=== PATIENT | male | born 1965 | race Caucasian/White ===

== ENCOUNTER 2022-02-11 20:17 | Inpatient (IN) | payer MEDICAID ==
[~2022-02-11] VITALS: Ht 180.3 cm; Wt 97.5 kg
--- NOTE | 2022-02-11 20:35 | NUR ---
BIBSELF C.O SYNCOPE LASTED 1 MIN @7PM. LKWT 12 NOON. C/P RADIATING TO LEFT SIDE. (SOB). PLACED COMFORTABLY IN BED. VITALS CHECKED. PATIENT IS AAOX4. PT HAS WEAKNESS ON LEFT SIDE OF BODY.
--- NOTE | 2022-02-11 20:41 | NUR ---
TELEMED REQUEST SENT
--- NOTE | 2022-02-11 20:43 | NUR ---
ESTELA TO CT
[2022-02-11] MEDS ORDERED: IOHEXOL-350 100 ML VIAL IV ONE (20:48)
[2022-02-11] MEDS ORDERED: IV NS 0.9% 250 ML IV ONE (20:48)
--- NOTE | 2022-02-11 20:59 | NUR ---
EMT AT BEDSIDE FOR EKG
[2022-02-11 21:01] LABS: BASOPHILS % (AUTO) 0.6 % (0.0-2.0); EOSINOPHILS % (AUTO) 1.2 % (0.0-6.0); HEMATOCRIT 40 % (39-51); HEMOGLOBIN 13.3 g/dL (13.5-17.5); LYMPHOCYTES # (AUTO) 1.9 K/uL (0.8-4.8); LYMPHOCYTES % (AUTO) 34.1 % (20.0-44.0); MEAN CORPUSCULAR HGB CONC 33 g/dl (31.0-36.0); MEAN CORPUSCULAR VOLUME 83 fL (80-96); MONOCYTES # (AUTO) 0.6 K/uL (0.1-1.30); NEUTROPHILS % (AUTO) 54.1 % (43.0-81.0); PLATELET COUNT (AUTO) 281 K/uL (150-450); RED BLOOD CELL COUNT(AUTO) 4.85 MIL/uL (4.5-6.0); WHITE BLOOD COUNT (AUTO) 5.6 K/uL (4.3-11.0)
[2022-02-11 21:13] LABS: ALANINE AMINOTRANSFERASE 17 U/L (12-78); ALBUMIN 3.6 g/dL (3.4-5.0); ALKALINE PHOSPHATASE 90 U/L (46-116); ASPARTATE AMINOTRANSFERASE 16 U/L (15-37); BILIRUBIN,DIRECT 0.1 mg/dL (0.0-0.2); BILIRUBIN,TOTAL 0.2 mg/dL (0.2-1.0); CALCIUM, SERUM 8.9 mg/dL (8.5-10.1); CARBON DIOXIDE 30 mmol/L (21-32); CHLORIDE 104 mmol/L (98-107); CREATININE 0.9 mg/dL (0.6-1.3); GLUCOSE 94 mg/dL (74-106); POTASSIUM 4.3 mmol/L (3.5-5.1); SODIUM SERUM 139 mmol/L (136-145); TOTAL PROTEIN, SERUM 8.1 g/dL (6.4-8.2); UREA NITROGEN, BLOOD 13 mg/dL (7-18)
--- NOTE | 2022-02-11 21:25 | NUR ---
TELENEURO DONE WITH DR PRAVEEN HOUSTON.
--- NOTE | 2022-02-11 21:25 | NUR ---
SEEN BY HI MITTAL AT BEDSIDE.
[2022-02-11] MEDS ORDERED: hydrALAZINE HCL IV 20 MG VIAL IV PRN (22:00)
[2022-02-11] MEDS: BLOOD SUGAR DIAGNOSTIC 1 EACH STRIP IN SCH (22:00)
--- NOTE | 2022-02-11 22:03 | NUR ---
MRSA SWAB COLLECTED AND SENT TO LAB. PATIENT'S BELONGINGS LIST DONE.
--- NOTE | 2022-02-11 22:08 | NUR ---
Courtney huber in [facility] - 02/11/22 at 2211 by IMELDA CALLED ACCEPTING RN WILL CALL ME BACK
[2022-02-11] MEDS ORDERED: ACETAMINOPHEN ES 500 MG TABLET PO PRN (22:30)
--- NOTE | 2022-02-11 23:25 | NUR ---
REPORT GIVEN TO GEORGE PEREZ
--- NOTE | 2022-02-11 23:45 | NUR ---
TRANSFER PATIENT TO ROOM
[2022-02-12] MEDS: SIMVASTATIN 20 MG TABLET PO SCH ×2 (00:08→21:27)
--- NOTE | 2022-02-12 00:57 | NUR ---
MS/TELE/RN AT 2466, RECEIVED PATIENT FROM [facility] VIA [facility]. PATIENT WAS AWAKE, ALERT, ORIENTED, VERY UPSET, NO SIGNS OF DISTRESS NOTED. ON ASSESSMENT, PATIENT REFUSED NIHSS ASSESSMENT, PATIENT STATED, " THERE IS NOTHING WRONG WITH ME EXCEPT MY LEFT LEG IS A LITTLE WEAK". PATIENT ALSO REFUSED SKIN ASSESSMENT. PATIENT ALSO REFUSED TO SIGN BELONGINGS FORM PER REHAN TERRY. DISCUSSED WITH PATIENT PLAN OF CARE, VERBALISED UNDERSTANDING. TAUGHT PATIENT ABOUT USE OF CALL LIGHT AND ENCOURAGED PATIENT TO CALL FOR ANY ASSISTANCE. WILL MONITOR PATIENT.
[2022-02-12] MEDS: BLOOD SUGAR DIAGNOSTIC 1 EACH STRIP IN SCH ×8 (06:00→21:27)
--- NOTE | 2022-02-12 06:12 | NUR ---
MS/TELE/RN PATIENT IS STILL SLEEPING, EASILY AROUSABLE, NO SIGNS OF DISTRESS NOTED, CALL LIGHT IN REACH. MRI QUESTIONNAIRE NOT DONE PATIENT IS SLEEPING. WILL ENDORSE TO NEXT RN. ALL NEEDS ATTENDED AT THIS TIME, WILL CONTINUE TO MONITOR.
--- NOTE | 2022-02-12 06:12 | NUR ---
MS/TELE/RN ACCU CHECK AT 0600 NOT DONE PATIENT IS NOT NPO.
[2022-02-12 06:32] LABS: BASOPHILS % (AUTO) 0.7 % (0.0-2.0); EOSINOPHILS % (AUTO) 2.1 % (0.0-6.0); HEMATOCRIT 38 % (39-51); HEMOGLOBIN 12.6 g/dL (13.5-17.5); LYMPHOCYTES # (AUTO) 1.7 K/uL (0.8-4.8); MEAN CORPUSCULAR HGB CONC 33 g/dl (31.0-36.0); MEAN CORPUSCULAR VOLUME 82 fL (80-96); MONOCYTES # (AUTO) 0.5 K/uL (0.1-1.30); MONOCYTES % (AUTO) 11.4 % (2.0-12.0); NEUTROPHILS # (AUTO) 2.1 K/uL (1.8-8.9); NEUTROPHILS % (AUTO) 47.8 % (43.0-81.0); PLATELET COUNT (AUTO) 262 K/uL (150-450); RED BLOOD CELL COUNT(AUTO) 4.69 MIL/uL (4.5-6.0); WHITE BLOOD COUNT (AUTO) 4.4 K/uL (4.3-11.0)
[2022-02-12] MEDS ORDERED: CARV6.252 PO (07:18)
[2022-02-12] MEDS ORDERED: AMLO-213 PO (07:18)
[2022-02-12] MEDS ORDERED: ENOX100D5 SQ (07:18)
[2022-02-12] MEDS ORDERED: LOSA100T31 PO (07:18)
[2022-02-12] MEDS ORDERED: PANTOPRAZOLE 40 MG TABLET.DR PO SCH (07:30)
--- NOTE | 2022-02-12 07:41 | NUR ---
RN OPENING NOTE- PATIENT IS AWAKE IN BED, AOX4 INTERACTIVE, A BIT OPPOSITIONAL, STATES FLOOR IS "LOUD AT NIGHT" NO SIGNS OF DISTRESS NOTED, CALL LIGHT IN REACH. ALL NEEDS ATTENDED AT THIS TIME, WILL CONTINUE TO MONITOR/ ASSIST
[2022-02-12 07:47] LABS: CALCIUM, SERUM 8.5 mg/dL (8.5-10.1); CREATININE 0.8 mg/dL (0.6-1.3); POTASSIUM 3.9 mmol/L (3.5-5.1)
[2022-02-12] MEDS: CARVEDILOL 6.25 MG TABLET PO SCH ×2 (08:46→16:46)
[2022-02-12] MEDS: ENOXAPARIN SODIUM 100 MG/ML DISP.SYRIN SQ SCH ×2 (08:46→21:00)
[2022-02-12] MEDS ORDERED: LOSARTAN POTASSIUM 50 MG TABLET PO SCH (09:00)
[2022-02-12] MEDS ORDERED: AMLODIPINE BESYLATE 10 MG TABLET PO SCH (09:00)
[2022-02-12] MEDS ORDERED: ENOXAPARIN SODIUM 100 MG/ML DISP.SYRIN SQ SCH (09:00)
--- NOTE | 2022-02-12 11:14 | NUR ---
SS received consult for stroke. Pt. is aggressive and refusing to speak. SW unable to interview pt.
--- NOTE | 2022-02-12 12:00 | NUR ---
RN NOTE- ASKED PT ABOUT PAST MEDICAL HX . NOT FORTHCOMING. IRRITABLE. WANTS TO SLEEP. SNACK GIVEN.
--- NOTE | 2022-02-12 13:45 | NUR ---
RN NOTE- PT OPPOSITIONAL TO SOME CARE. REFUSES THINGS. IRRITABLE. MONITOR / ASSIST
--- NOTE | 2022-02-12 16:47 | NUR ---
RN NOTE- USED [employer] TO PERFORM MRI. PT REFUSING VS AND ACCUCHECK/ HTN RX
--- NOTE | 2022-02-12 18:18 | NUR ---
RN NOTE- MRI STAFF TO UNIT TO TAKE PT FOR MRI
--- NOTE | 2022-02-12 19:18 | NUR ---
RN CLOSING NOTE- PT BACK FROM MRI, CALM INTERACTIVE, NEEDS ATTENDED. SIDE RAILS UP, BED LOCKED, VS STABLE. MONITOR / ASSIST
[2022-02-12 20:45] VITALS: BP 131/75
--- NOTE | 2022-02-12 22:07 | NUR ---
MS/TELE/RN AT 1999, PATIENT WAS IN ROOM, IN BE, AWAKE, ALERT, AND ORIENTED, NO C/O PAIN, NO SIGNS OF DISTRESS NOTED. REFUSED THE LOVENOX AT 2100, OFFERED THE BEDTIME MEDICATIONS, BUT ALSO REFUSED, PATIENT ALSO REFUSED THE ACCU CHECK.
[2022-02-13] MEDS: BLOOD SUGAR DIAGNOSTIC 1 EACH STRIP IN SCH ×3 (06:00→06:56)
--- NOTE | 2022-02-13 06:23 | NUR ---
MS/TELE/RN PATIENT IS AWAKE AT THIS TIME, NO C/O PAIN, NO DISTRESS NOTED, REFUSED ACCU CHECK STATING " I AM NOT DIABETIC, STOP CHECKING MY BLOOD SUGAR". ALL NEEDS ATTENDED AT THIS TIME, WILL CONTINUE TO MONITOR.
--- NOTE | 2022-02-13 07:30 | NUR ---
on rounds in am find pt.with flat affect,unfriendly.refusing vital signs.
--- NOTE | 2022-02-13 07:40 | NUR ---
REFUSED AM VITAL SIGNS.
--- NOTE | 2022-02-13 08:21 | NUR ---
dr. dalal in to see pt.
--- NOTE | 2022-02-13 08:40 | NUR ---
pt. getting dressed,states heel coverer told him he could go home.rn advised pt. medical dr. needs to see him first and dc him.pt. refusing.states he is leaving anything. Addendum: 02/13/22 at 1014 by KENJI CHRISTINE RN anyway.not anything.
--- NOTE | 2022-02-13 09:50 | NUR ---
DID NOT WAIT FOR DC PAPERS.
--- NOTE | 2022-02-13 09:55 | NUR ---
rn removing tele,2 hep locks,bandages to sites.refusing to sign ama papers.signed paper with kiln charger,additionally pt. refused to sign belonging sheet.walked down to lobby for dc by himself.
[2022-02-15 21:06] LABS: *CARD ANTI-CARDIOLIPIN AB IgG <9 GPL U/mL (0-14); *CARD ANTI-CARDIOLIPIN AB IgM <9 MPL U/mL (0-12)
[2022-02-16 21:06] LABS: *ANTITHROMBIN III AG 111 % (72-124); *DILUTE PROTHROMBIN TIME (dPT) 34.3 sec (0.0-47.6); *THROMBIN TIME 17.7 sec (0.0-23.0); *dPT CONFIRM RATIO 0.95 Ratio (0.00-1.34); *dRVVT 31.3 sec (0.0-47.0); FACTOR VIII ACTIVITY 146 % (56-140)
== END 2022-02-13 08:50 | disposition left against medical advice (07) | DRG 47 ==
LOC: ER 20:20 → TELE 23:16 → MED 02-13 08:43
PROVIDERS: ADMIT Nurse Practitioner Acute Care; ATTEND Nurse Practitioner Acute Care
DX: G45.9 Transient cerebral ischemic attack, unspecified (principal); I10 Essential (primary) hypertension; I48.91 Unspecified atrial fibrillation; Z86.711 Personal history of pulmonary embolism; Z86.718 Personal history of other venous thrombosis and embolism; I25.10 Atherosclerotic heart disease of native coronary artery without angina pectoris; J45.909 Unspecified asthma, uncomplicated; Z85.038 Personal history of other malignant neoplasm of large intestine; R00.0 Tachycardia, unspecified; Z68.30 Body mass index [BMI] 30.0-30.9, adult; Z20.822 Contact with and (suspected) exposure to COVID-19; I45.6 Pre-excitation syndrome; R29.701 NIHSS score 1; E66.9 Obesity, unspecified
CPT/HCPCS: 36415; 70450-TC; 70496-TC; 70498-TC; 70551-TC; 71045-TC; 80048-TC; 80061-TC; 80076-TC; 82962-TC; 84443-TC; 84484-TC; 85025-TC; 85240; 85300; 85301; 85303; 85385-TC; 85613; 85652-TC; 85670; 85705; 85730-TC; 85732; 86147; 87081-TC; 97116-TC; 97530-TC; 97535-TC; A6403; C9803; G0378; J1650; J7050; Q9967

== ENCOUNTER 2022-03-06 05:53 | Emergency (ER) | payer MEDICAID ==
[~2022-03-06] VITALS: Ht 180.3 cm; Wt 93.9 kg
[~2022-03-06 05:53] MED LIST: AMLO-213 PO; CARV6.252 PO; ENOX100D5 SQ; LOSA100T31 PO
--- NOTE | 2022-03-06 06:45 | NUR ---
PATIENT REFUSED BLOOD WORK AND IV INSERTION. MADE AWARE.
--- NOTE | 2022-03-06 07:15 | NUR ---
MD MCKINNEY ESTABLISHED IJ 20G.
--- NOTE | 2022-03-06 07:16 | NUR ---
BLOOD COLLECTED AND SENT TO LAB
[2022-03-06 07:22] LABS: BASOPHILS % (AUTO) 0.6 % (0.0-2.0); EOSINOPHILS % (AUTO) 1.6 % (0.0-6.0); HEMATOCRIT 36 % (39-51); HEMOGLOBIN 11.7 g/dL (13.5-17.5); LYMPHOCYTES % (AUTO) 26.7 % (20.0-44.0); MEAN CORPUSCULAR HGB CONC 33 g/dl (31.0-36.0); MEAN CORPUSCULAR VOLUME 83 fL (80-96); MONOCYTES # (AUTO) 0.9 K/uL (0.1-1.30); MONOCYTES % (AUTO) 11.5 % (2.0-12.0); NEUTROPHILS # (AUTO) 4.5 K/uL (1.8-8.9); NEUTROPHILS % (AUTO) 59.6 % (43.0-81.0); PLATELET COUNT (AUTO) 285 K/uL (150-450); RED BLOOD CELL COUNT(AUTO) 4.33 MIL/uL (4.5-6.0); WHITE BLOOD COUNT (AUTO) 7.5 K/uL (4.3-11.0)
[2022-03-06 07:45] LABS: CALCIUM, SERUM 8.4 mg/dL (8.5-10.1); CARBON DIOXIDE 27 mmol/L (21-32); CHLORIDE 103 mmol/L (98-107); CREATININE 0.7 mg/dL (0.6-1.3); GLUCOSE 95 mg/dL (74-106); POTASSIUM 3.7 mmol/L (3.5-5.1); SODIUM SERUM 137 mmol/L (136-145); UREA NITROGEN, BLOOD 15 mg/dL (7-18)
[2022-03-06] MEDS ORDERED: IOHEXOL-350 100 ML VIAL IV ONE (08:06)
[2022-03-06] MEDS ORDERED: IV NS 0.9% 250 ML IV ONE (08:06)
--- NOTE | 2022-03-06 08:16 | NUR ---
TAKEN TO CT VIA [facility]
[2022-03-06 09:08] VITALS: BP 144/88
--- NOTE | 2022-03-06 09:08 | NUR ---
Patient discharged to home in stable condition. Written and verbal after care instructions given. Patient verbalizes understanding of instruction.IV removed. Catheter intact and site benign. Pressure and 4x4 applied to site. No bleeding noted.
== END 2022-03-06 09:08 | disposition home or self-care (01) ==
LOC: ER 06:03
DX: R55 Syncope and collapse (principal); I48.91 Unspecified atrial fibrillation; I10 Essential (primary) hypertension; Z88.0 Allergy status to penicillin; Z88.8 Allergy status to other drugs, medicaments and biological substances; Z60.2 Problems related to living alone; Z79.899 Other long term (current) drug therapy
CPT/HCPCS: 99285; 93970; 71045; 36410; 93005 ×2; 85025; 80048; 36415; 84484 ×2; 85730; J7050; Q9967

== ENCOUNTER 2022-12-25 20:01 | Inpatient (IN) | payer MEDICAID ==
[~2022-12-25] VITALS: Ht 180.3 cm; Wt 97.1 kg
[2022-12-25] MEDS ORDERED: methylPREDNISolone SOD SUCC 125 MG/2ML VIAL ONE (20:39)
[2022-12-25] MEDS ORDERED: methylPREDNISolone SOD SUCC 125 MG/2ML VIAL IV ONE (21:00)
[2022-12-25 21:13] LABS: BASOPHILS # (AUTO) 0.1 K/uL (0.0-0.2); BASOPHILS % (AUTO) 0.7 % (0.0-2.0); EOSINOPHILS % (AUTO) 0.2 % (0.0-6.0); HEMATOCRIT 37 % (39-51); HEMOGLOBIN 11.7 g/dL (13.5-17.5); LYMPHOCYTES % (AUTO) 6.7 % (20.0-44.0); MEAN CORPUSCULAR HGB CONC 32 g/dl (31.0-36.0); MEAN CORPUSCULAR VOLUME 78 fL (80-96); MONOCYTES # (AUTO) 0.9 K/uL (0.1-1.30); NEUTROPHILS # (AUTO) 13.3 K/uL (1.8-8.9); NEUTROPHILS % (AUTO) 86.4 % (43.0-81.0); PLATELET COUNT (AUTO) 420 K/uL (150-450); RED BLOOD CELL COUNT(AUTO) 4.78 MIL/uL (4.5-6.0); WHITE BLOOD COUNT (AUTO) 15.4 K/uL (4.3-11.0)
[2022-12-25 21:20] LABS: CALCIUM, SERUM 8.9 mg/dL (8.5-10.1); POTASSIUM 3.9 mmol/L (3.5-5.1)
[2022-12-25 21:26] LABS: ALBUMIN 2.9 g/dL (3.4-5.0); BILIRUBIN,DIRECT 0.1 mg/dL (0.0-0.2); BILIRUBIN,TOTAL 0.2 mg/dL (0.2-1.0); TOTAL PROTEIN, SERUM 7.3 g/dL (6.4-8.2)
[2022-12-25] MEDS ORDERED: IV NS 0.9% 1,000 ML BAG IV ONE (21:30)
[2022-12-25 22:01] LABS: BAND % (MANUAL) 2 % (0.0-5.0); LYMPHOCYTES % (MANUAL) 12 % (16-48); MONOCYTES % (MANUAL) 4 % (0-11.0); NEUTROPHILS % (MANUAL) 82 (42-76)
[2022-12-26] VITALS: BP 161/100
[2022-12-26] MEDS ORDERED: ONDANSETRON HCL/PF 4 MG/2 ML VIAL IVP PRN
[2022-12-26] MEDS ORDERED: ACETAMINOPHEN 325 MG TABLET PO PRN
[2022-12-26] MEDS ORDERED: DOSE PER PHARMACY (MD SPECIFY MEDICATION) 1 EA IV PRN
[2022-12-26] MEDS ORDERED: MAGNESIUM HYDROXIDE 30 ML UDC PO PRN
[2022-12-26] MEDS: IV NS 0.9% 1,000 ML IV PRN (01:37)
[2022-12-26] MEDS: TEMAZEPAM 7.5 MG CAPSULE PO PRN (03:21)
[2022-12-26 07:00] VITALS: BP 145/96
[2022-12-26] MEDS: PANTOPRAZOLE 40 MG TABLET.DR PO SCH (08:07)
[2022-12-26 08:49] LABS: BASOPHILS % (AUTO) 0.1 % (0.0-2.0); HEMATOCRIT 37 % (39-51); HEMOGLOBIN 11.8 g/dL (13.5-17.5); LYMPHOCYTES # (AUTO) 0.7 K/uL (0.8-4.8); LYMPHOCYTES % (AUTO) 5.6 % (20.0-44.0); MEAN CORPUSCULAR HGB CONC 32 g/dl (31.0-36.0); MEAN CORPUSCULAR VOLUME 77 fL (80-96); MONOCYTES # (AUTO) 0.3 K/uL (0.1-1.30); NEUTROPHILS # (AUTO) 11.8 K/uL (1.8-8.9); NEUTROPHILS % (AUTO) 92.3 % (43.0-81.0); PLATELET COUNT (AUTO) 401 K/uL (150-450); RED BLOOD CELL COUNT(AUTO) 4.72 MIL/uL (4.5-6.0); WHITE BLOOD COUNT (AUTO) 12.8 K/uL (4.3-11.0)
[2022-12-26 09:05] LABS: CALCIUM, SERUM 8.8 mg/dL (8.5-10.1); CREATININE 1.1 mg/dL (0.6-1.3); MAGNESIUM 2.1 mg/dL (1.8-2.4); PHOSPHORUS 4.2 mg/dL (2.5-4.9); POTASSIUM 4.2 mmol/L (3.5-5.1)
[2022-12-26 09:18] LABS: THYROID STIMULATING HORMONE 0.146 uIU/mL (0.358-3.74)
[2022-12-26] MEDS ORDERED: ALBU8.5H8 IH (10:15)
[2022-12-26] MEDS ORDERED: IBUP-1953 PO (10:15)
[2022-12-26] MEDS ORDERED: DEXA4TAB PO (10:15)
[2022-12-26] MEDS ORDERED: HYDR12.55 PO (10:15)
[2022-12-26] MEDS ORDERED: METO25TA20 PO (10:15)
[2022-12-26] MEDS ORDERED: TAMS-12 PO (10:15)
[2022-12-26] MEDS ORDERED: LORAZEPAM INJ 2 MG/ML VIAL IV PRN (13:00)
[2022-12-26 16:44] VITALS: BP 151/102
[2022-12-26] MEDS: methylPREDNISolone SOD SUCC 1,000 MG in IV NS 0.9% 250 ML IV SCH (17:54)
[2022-12-26] MEDS ORDERED: GADOTERATE MEGLUMINE 10 MMOL/20 ML VIAL IV ONE (18:26)
[2022-12-26 19:52] VITALS: BP 141/93
[2022-12-26] MEDS: AMLODIPINE BESYLATE 10 MG TABLET PO SCH (20:30)
[2022-12-26] MEDS ORDERED: ALBUTEROL SULFATE 8 GM HFA.AER.AD IH PRN (20:30)
[2022-12-26] MEDS ORDERED: AMOX/CLAVULANATE 875 MG TABLET PO SCH (21:00)
[2022-12-26] MEDS: DOXYCYCLINE HYCLATE (100 MG) 100 MG TABLET PO SCH (21:00)
[2022-12-26] MEDS: ALBUTEROL FS 2.5 MG/3 ML VIAL.NEB NEB PRN (23:43)
[2022-12-27 08:00] VITALS: BP 163/103
[2022-12-27] MEDS: PANTOPRAZOLE 40 MG TABLET.DR PO SCH (08:21)
[2022-12-27] MEDS: LOSARTAN POTASSIUM 50 MG TABLET PO SCH (08:22)
[2022-12-27] MEDS: TAMSULOSIN 0.4 MG CAP.SR.24H PO SCH (08:22)
[2022-12-27] MEDS: HYDROCHLOROTHIAZIDE 25 MG TABLET PO SCH (08:23)
[2022-12-27] MEDS: AMLODIPINE BESYLATE 10 MG TABLET PO SCH (08:24)
[2022-12-27] MEDS: METOPROLOL TARTRATE 25 MG TABLET PO SCH ×2 (08:25→16:28)
[2022-12-27] MEDS: DOXYCYCLINE HYCLATE (100 MG) 100 MG TABLET PO SCH ×2 (09:00→20:36)
[2022-12-27] MEDS ORDERED: AZITHROMYCIN 250 MG TABLET PO ONE (09:30)
[2022-12-27] MEDS: ALBUTEROL FS 2.5 MG/3 ML VIAL.NEB NEB PRN (16:27)
[2022-12-27] MEDS: methylPREDNISolone SOD SUCC 1,000 MG in IV NS 0.9% 250 ML IV SCH (16:27)
[2022-12-27 20:00] VITALS: BP 147/93
[2022-12-27] MEDS: TEMAZEPAM 7.5 MG CAPSULE PO PRN (20:35)
[2022-12-28] MEDS ORDERED: ALPRAZOLAM 0.25 MG TABLET PO ONE (03:30)
[2022-12-28 07:01] LABS: HEMATOCRIT 36 % (39-51); HEMOGLOBIN 11.4 g/dL (13.5-17.5); LYMPHOCYTES # (AUTO) 0.6 K/uL (0.8-4.8); LYMPHOCYTES % (AUTO) 5.2 % (20.0-44.0); MEAN CORPUSCULAR HGB CONC 32 g/dl (31.0-36.0); MEAN CORPUSCULAR VOLUME 78 fL (80-96); MONOCYTES # (AUTO) 0.3 K/uL (0.1-1.30); MONOCYTES % (AUTO) 2.5 % (2.0-12.0); NEUTROPHILS # (AUTO) 10.5 K/uL (1.8-8.9); NEUTROPHILS % (AUTO) 92.3 % (43.0-81.0); PLATELET COUNT (AUTO) 353 K/uL (150-450); WHITE BLOOD COUNT (AUTO) 11.4 K/uL (4.3-11.0)
[2022-12-28 07:35] LABS: CREATININE 0.9 mg/dL (0.6-1.3); MAGNESIUM 2.3 mg/dL (1.8-2.4); POTASSIUM 3.6 mmol/L (3.5-5.1)
[2022-12-28 08:00] VITALS: BP 127/81
[2022-12-28] MEDS: HYDROCHLOROTHIAZIDE 25 MG TABLET PO SCH (08:39)
[2022-12-28] MEDS: PANTOPRAZOLE 40 MG TABLET.DR PO SCH (08:40)
[2022-12-28] MEDS: AMLODIPINE BESYLATE 10 MG TABLET PO SCH (08:40)
[2022-12-28] MEDS: DOXYCYCLINE HYCLATE (100 MG) 100 MG TABLET PO SCH ×2 (08:40→21:05)
[2022-12-28] MEDS: AZITHROMYCIN 250 MG TABLET PO SCH (08:40)
[2022-12-28] MEDS: TAMSULOSIN 0.4 MG CAP.SR.24H PO SCH (08:41)
[2022-12-28] MEDS: METOPROLOL TARTRATE 25 MG TABLET PO SCH ×2 (08:41→16:25)
[2022-12-28] MEDS: LOSARTAN POTASSIUM 50 MG TABLET PO SCH (08:41)
[2022-12-28] MEDS ORDERED: LORAZEPAM INJ 2 MG/ML VIAL IV ONE (11:00)
[2022-12-28] MEDS ORDERED: TEMAZEPAM 7.5 MG CAPSULE PO PRN (12:00)
[2022-12-28] MEDS: LORAZEPAM INJ 2 MG/ML VIAL IV PRN (12:45)
[2022-12-28 15:50] VITALS: BP 139/91
[2022-12-28] MEDS: methylPREDNISolone SOD SUCC 1,000 MG in IV NS 0.9% 250 ML IV SCH (16:04)
[2022-12-28 20:00] VITALS: BP 149/86
[2022-12-28] MEDS: INSULIN REGULAR, HUMAN 100 UNIT/ML 3 ML VIAL SQ PRN (22:22)
[2022-12-28] MEDS: BLOOD SUGAR DIAGNOSTIC 1 EACH STRIP IN SCH (22:23)
[2022-12-28] MEDS ORDERED: DEXTROSE 50%-WATER 50 ML DISP.SYRIN IV PRN (22:30)
[2022-12-29] MEDS: MENTHOL/CETYLPYRD (CEPACOL) 1 LOZ LOZENGE PO PRN ×4 (02:04→20:41)
[2022-12-29] MEDS: IV NS 0.9% 1,000 ML IV PRN (02:11)
[2022-12-29] MEDS: BLOOD SUGAR DIAGNOSTIC 1 EACH STRIP IN SCH ×4 (06:05→21:12)
[2022-12-29] MEDS: INSULIN REGULAR, HUMAN 100 UNIT/ML 3 ML VIAL SQ PRN ×4 (06:19→21:14)
[2022-12-29 06:48] LABS: BASOPHILS % (AUTO) 0.1 % (0.0-2.0); HEMATOCRIT 35 % (39-51); HEMOGLOBIN 11.1 g/dL (13.5-17.5); LYMPHOCYTES # (AUTO) 0.7 K/uL (0.8-4.8); LYMPHOCYTES % (AUTO) 5.3 % (20.0-44.0); MEAN CORPUSCULAR HGB CONC 32 g/dl (31.0-36.0); MEAN CORPUSCULAR VOLUME 78 fL (80-96); MONOCYTES # (AUTO) 0.3 K/uL (0.1-1.30); MONOCYTES % (AUTO) 2.5 % (2.0-12.0); NEUTROPHILS # (AUTO) 11.3 K/uL (1.8-8.9); NEUTROPHILS % (AUTO) 92.1 % (43.0-81.0); PLATELET COUNT (AUTO) 326 K/uL (150-450); RED BLOOD CELL COUNT(AUTO) 4.46 MIL/uL (4.5-6.0); WHITE BLOOD COUNT (AUTO) 12.3 K/uL (4.3-11.0)
[2022-12-29 07:00] VITALS: BP 140/93
[2022-12-29 07:26] LABS: CALCIUM, SERUM 8.5 mg/dL (8.5-10.1); CREATININE 0.9 mg/dL (0.6-1.3); POTASSIUM 3.5 mmol/L (3.5-5.1)
[2022-12-29] MEDS: PANTOPRAZOLE 40 MG TABLET.DR PO SCH (07:51)
[2022-12-29] MEDS: METOPROLOL TARTRATE 25 MG TABLET PO SCH ×2 (08:28→17:11)
[2022-12-29] MEDS: AMLODIPINE BESYLATE 10 MG TABLET PO SCH (08:28)
[2022-12-29] MEDS: HYDROCHLOROTHIAZIDE 25 MG TABLET PO SCH (08:28)
[2022-12-29] MEDS: DOXYCYCLINE HYCLATE (100 MG) 100 MG TABLET PO SCH ×2 (08:29→20:29)
[2022-12-29] MEDS: TAMSULOSIN 0.4 MG CAP.SR.24H PO SCH (08:29)
[2022-12-29] MEDS: AZITHROMYCIN 250 MG TABLET PO SCH (08:29)
[2022-12-29] MEDS: LOSARTAN POTASSIUM 50 MG TABLET PO SCH (08:29)
[2022-12-29 16:00] VITALS: BP 151/86
[2022-12-29] MEDS: methylPREDNISolone SOD SUCC 1,000 MG in IV NS 0.9% 250 ML IV SCH (16:09)
[2022-12-29] MEDS: ALBUTEROL FS 2.5 MG/3 ML VIAL.NEB NEB PRN (16:37)
[2022-12-29] MEDS: TEMAZEPAM 7.5 MG CAPSULE PO PRN (21:19)
[2022-12-30] MEDS: MENTHOL/CETYLPYRD (CEPACOL) 1 LOZ LOZENGE PO PRN ×2 (01:50→11:16)
[2022-12-30 05:51] LABS: HEMATOCRIT 36 % (39-51); HEMOGLOBIN 11.5 g/dL (13.5-17.5); LYMPHOCYTES # (AUTO) 0.5 K/uL (0.8-4.8); LYMPHOCYTES % (AUTO) 4.1 % (20.0-44.0); MEAN CORPUSCULAR HGB CONC 32 g/dl (31.0-36.0); MEAN CORPUSCULAR VOLUME 78 fL (80-96); MONOCYTES # (AUTO) 0.4 K/uL (0.1-1.30); MONOCYTES % (AUTO) 3.3 % (2.0-12.0); NEUTROPHILS # (AUTO) 10.5 K/uL (1.8-8.9); NEUTROPHILS % (AUTO) 92.6 % (43.0-81.0); PLATELET COUNT (AUTO) 328 K/uL (150-450); RED BLOOD CELL COUNT(AUTO) 4.61 MIL/uL (4.5-6.0); WHITE BLOOD COUNT (AUTO) 11.4 K/uL (4.3-11.0)
[2022-12-30 06:10] LABS: CALCIUM, SERUM 8.9 mg/dL (8.5-10.1); CREATININE 0.9 mg/dL (0.6-1.3); POTASSIUM 3.4 mmol/L (3.5-5.1)
[2022-12-30] MEDS: BLOOD SUGAR DIAGNOSTIC 1 EACH STRIP IN SCH ×4 (06:38→21:27)
[2022-12-30] MEDS: INSULIN REGULAR, HUMAN 100 UNIT/ML 3 ML VIAL SQ PRN ×4 (06:41→21:29)
[2022-12-30] MEDS: PANTOPRAZOLE 40 MG TABLET.DR PO SCH (07:28)
[2022-12-30 08:26] VITALS: BP 135/83
[2022-12-30] MEDS: TAMSULOSIN 0.4 MG CAP.SR.24H PO SCH (08:54)
[2022-12-30] MEDS: LOSARTAN POTASSIUM 50 MG TABLET PO SCH (08:55)
[2022-12-30] MEDS: AMLODIPINE BESYLATE 10 MG TABLET PO SCH (08:55)
[2022-12-30] MEDS: METOPROLOL TARTRATE 25 MG TABLET PO SCH ×2 (08:55→16:58)
[2022-12-30] MEDS: HYDROCHLOROTHIAZIDE 25 MG TABLET PO SCH (08:56)
[2022-12-30] MEDS: DOXYCYCLINE HYCLATE (100 MG) 100 MG TABLET PO SCH ×2 (08:56→20:14)
[2022-12-30] MEDS: AZITHROMYCIN 250 MG TABLET PO SCH (08:57)
[2022-12-30] MEDS ORDERED: POTASSIUM CHLORIDE 20 MEQ POWDER PACKET PO ONE (11:00)
[2022-12-30 16:12] VITALS: BP 132/95
[2022-12-30] MEDS: MAG HYDROX/AL HYDROX/SIMETH 30 ML UDC PO PRN (16:57)
[2022-12-30] MEDS: methylPREDNISolone SOD SUCC 1,000 MG in IV NS 0.9% 250 ML IV SCH (16:57)
[2022-12-30 20:00] VITALS: BP 146/99
[2022-12-30] MEDS: TEMAZEPAM 7.5 MG CAPSULE PO PRN (21:27)
[2022-12-31] MEDS: MAG HYDROX/AL HYDROX/SIMETH 30 ML UDC PO PRN ×2 (01:02→13:36)
[2022-12-31] MEDS: TEMAZEPAM 7.5 MG CAPSULE PO PRN (01:11)
[2022-12-31] MEDS: BLOOD SUGAR DIAGNOSTIC 1 EACH STRIP IN SCH ×4 (06:53→21:17)
[2022-12-31] MEDS: INSULIN REGULAR, HUMAN 100 UNIT/ML 3 ML VIAL SQ PRN ×4 (06:55→21:20)
[2022-12-31] MEDS: PANTOPRAZOLE 40 MG TABLET.DR PO SCH (07:55)
[2022-12-31 08:14] VITALS: BP 156/105
[2022-12-31] MEDS: LOSARTAN POTASSIUM 50 MG TABLET PO SCH (09:07)
[2022-12-31] MEDS: DOXYCYCLINE HYCLATE (100 MG) 100 MG TABLET PO SCH ×2 (09:07→20:15)
[2022-12-31] MEDS: AZITHROMYCIN 250 MG TABLET PO SCH (09:07)
[2022-12-31] MEDS: METOPROLOL TARTRATE 25 MG TABLET PO SCH ×2 (09:07→17:13)
[2022-12-31] MEDS: TAMSULOSIN 0.4 MG CAP.SR.24H PO SCH (09:07)
[2022-12-31] MEDS: HYDROCHLOROTHIAZIDE 25 MG TABLET PO SCH (09:08)
[2022-12-31] MEDS: AMLODIPINE BESYLATE 10 MG TABLET PO SCH (09:08)
[2022-12-31] MEDS: FAMOTIDINE (20 MG) 20 MG TABLET PO SCH ×2 (11:43→20:15)
[2022-12-31] MEDS: predniSONE 20 MG TABLET PO SCH ×2 (11:43→20:16)
[2022-12-31] MEDS: MENTHOL/CETYLPYRD (CEPACOL) 1 LOZ LOZENGE PO PRN (15:40)
[2022-12-31 15:57] VITALS: BP 141/110
[2022-12-31] MEDS: NYSTATIN (PYXIS) 500,000 UNIT/5 ML ORAL.SUSP PO SCH ×3 (18:00→20:24)
[2022-12-31 20:00] VITALS: BP 142/106
[2023-01-01] MEDS: MENTHOL/CETYLPYRD (CEPACOL) 1 LOZ LOZENGE PO PRN (04:46)
[2023-01-01] MEDS: MAG HYDROX/AL HYDROX/SIMETH 30 ML UDC PO PRN (04:46)
[2023-01-01] MEDS: BLOOD SUGAR DIAGNOSTIC 1 EACH STRIP IN SCH ×4 (06:42→22:00)
[2023-01-01] MEDS: INSULIN REGULAR, HUMAN 100 UNIT/ML 3 ML VIAL SQ PRN ×3 (06:43→17:11)
[2023-01-01 07:00] VITALS: BP 148/94
[2023-01-01] MEDS: FAMOTIDINE (20 MG) 20 MG TABLET PO SCH ×2 (08:39→21:00)
[2023-01-01] MEDS: AMLODIPINE BESYLATE 10 MG TABLET PO SCH (08:39)
[2023-01-01] MEDS: NYSTATIN (PYXIS) 500,000 UNIT/5 ML ORAL.SUSP PO SCH ×4 (08:40→21:17)
[2023-01-01] MEDS: HYDROCHLOROTHIAZIDE 25 MG TABLET PO SCH (08:41)
[2023-01-01] MEDS: TAMSULOSIN 0.4 MG CAP.SR.24H PO SCH (08:41)
[2023-01-01] MEDS: DOXYCYCLINE HYCLATE (100 MG) 100 MG TABLET PO SCH ×2 (08:42→21:00)
[2023-01-01] MEDS: METOPROLOL TARTRATE 25 MG TABLET PO SCH ×2 (08:42→17:10)
[2023-01-01] MEDS: LOSARTAN POTASSIUM 50 MG TABLET PO SCH (08:42)
[2023-01-01] MEDS: predniSONE 5 MG TABLET PO SCH ×2 (08:46→21:00)
[2023-01-01 16:00] VITALS: BP 149/92
[2023-01-01] MEDS ORDERED: KETOROLAC TROMETHAMINE INJ 30 MG/ML VIAL IV PRN (23:00)
[2023-01-02] MEDS: MENTHOL/CETYLPYRD (CEPACOL) 1 LOZ LOZENGE PO PRN ×3 (02:08→15:33)
[2023-01-02 05:41] LABS: BASOPHILS # (AUTO) 0.1 K/uL (0.0-0.2); BASOPHILS % (AUTO) 0.5 % (0.0-2.0); EOSINOPHILS % (AUTO) 0.6 % (0.0-6.0); HEMATOCRIT 36 % (39-51); HEMOGLOBIN 11.5 g/dL (13.5-17.5); LYMPHOCYTES % (AUTO) 7.8 % (20.0-44.0); MEAN CORPUSCULAR HGB CONC 32 g/dl (31.0-36.0); MEAN CORPUSCULAR VOLUME 78 fL (80-96); MONOCYTES # (AUTO) 0.7 K/uL (0.1-1.30); MONOCYTES % (AUTO) 5.2 % (2.0-12.0); NEUTROPHILS # (AUTO) 11.4 K/uL (1.8-8.9); NEUTROPHILS % (AUTO) 85.9 % (43.0-81.0); PLATELET COUNT (AUTO) 261 K/uL (150-450); RED BLOOD CELL COUNT(AUTO) 4.62 MIL/uL (4.5-6.0); WHITE BLOOD COUNT (AUTO) 13.3 K/uL (4.3-11.0)
[2023-01-02] MEDS: BLOOD SUGAR DIAGNOSTIC 1 EACH STRIP IN SCH ×4 (06:13→23:46)
[2023-01-02 06:17] LABS: CALCIUM, SERUM 8.3 mg/dL (8.5-10.1); CREATININE 0.9 mg/dL (0.6-1.3); POTASSIUM 4.3 mmol/L (3.5-5.1)
[2023-01-02] MEDS: METOPROLOL TARTRATE 25 MG TABLET PO SCH ×3 (09:00→17:09)
[2023-01-02] MEDS: DOXYCYCLINE HYCLATE (100 MG) 100 MG TABLET PO SCH (09:00)
[2023-01-02] MEDS: NYSTATIN (PYXIS) 500,000 UNIT/5 ML ORAL.SUSP PO SCH ×5 (09:00→21:59)
[2023-01-02] MEDS: LOSARTAN POTASSIUM 50 MG TABLET PO SCH (09:00)
[2023-01-02] MEDS: FAMOTIDINE (20 MG) 20 MG TABLET PO SCH ×2 (09:00→21:59)
[2023-01-02] MEDS: predniSONE 5 MG TABLET PO SCH ×2 (09:00→21:59)
[2023-01-02] MEDS: AMLODIPINE BESYLATE 10 MG TABLET PO SCH (09:00)
[2023-01-02] MEDS: HYDROCHLOROTHIAZIDE 25 MG TABLET PO SCH (09:00)
[2023-01-02] MEDS: TAMSULOSIN 0.4 MG CAP.SR.24H PO SCH (09:00)
[2023-01-02] MEDS: LINEZOLID RTU BAG 600 MG in PREMIX 1 EA IV SCH (15:23)
[2023-01-02 16:08] VITALS: BP 163/76
[2023-01-02] MEDS: INSULIN REGULAR, HUMAN 100 UNIT/ML 3 ML VIAL SQ PRN (17:25)
[2023-01-03] MEDS: MENTHOL/CETYLPYRD (CEPACOL) 1 LOZ LOZENGE PO PRN ×2 (00:51→07:48)
[2023-01-03] MEDS: LINEZOLID RTU BAG 600 MG in PREMIX 1 EA IV SCH (03:38)
[2023-01-03] MEDS: BLOOD SUGAR DIAGNOSTIC 1 EACH STRIP IN SCH ×4 (06:36→21:10)
[2023-01-03] MEDS: KETOROLAC TROMETHAMINE INJ 30 MG/ML VIAL IV PRN ×2 (07:31→15:59)
[2023-01-03] MEDS: FAMOTIDINE (20 MG) 20 MG TABLET PO SCH ×2 (08:59→21:00)
[2023-01-03] MEDS: NYSTATIN (PYXIS) 500,000 UNIT/5 ML ORAL.SUSP PO SCH ×4 (08:59→21:00)
[2023-01-03] MEDS: METOPROLOL TARTRATE 25 MG TABLET PO SCH ×2 (09:00→16:51)
[2023-01-03] MEDS: predniSONE 5 MG TABLET PO SCH ×4 (09:00→21:14)
[2023-01-03] MEDS: AMLODIPINE BESYLATE 10 MG TABLET PO SCH (09:00)
[2023-01-03] MEDS: HYDROCHLOROTHIAZIDE 25 MG TABLET PO SCH (09:01)
[2023-01-03] MEDS: LOSARTAN POTASSIUM 50 MG TABLET PO SCH (09:01)
[2023-01-03] MEDS: TAMSULOSIN 0.4 MG CAP.SR.24H PO SCH (09:05)
[2023-01-03] MEDS: LORAZEPAM INJ 2 MG/ML VIAL IV PRN (11:02)
[2023-01-03] MEDS: INSULIN REGULAR, HUMAN 100 UNIT/ML 3 ML VIAL SQ PRN ×2 (11:47→18:04)
[2023-01-03] MEDS ORDERED: CYCLOBENZAPRINE 10 MG TABLET PO PRN (12:00)
[2023-01-03] MEDS: LINEZOLID 600 MG TABLET PO SCH (16:51)
[2023-01-03 20:00] VITALS: BP 111/75
[2023-01-04] MEDS: BLOOD SUGAR DIAGNOSTIC 1 EACH STRIP IN SCH ×4 (06:34→20:54)
[2023-01-04 07:30] VITALS: BP 115/81
[2023-01-04 09:28] LABS: BASOPHILS % (AUTO) 0.1 % (0.0-2.0); EOSINOPHILS % (AUTO) 2.3 % (0.0-6.0); HEMATOCRIT 40 % (39-51); HEMOGLOBIN 12.4 g/dL (13.5-17.5); LYMPHOCYTES # (AUTO) 1.3 K/uL (0.8-4.8); LYMPHOCYTES % (AUTO) 13.5 % (20.0-44.0); MEAN CORPUSCULAR HGB CONC 31 g/dl (31.0-36.0); MEAN CORPUSCULAR VOLUME 79 fL (80-96); MONOCYTES # (AUTO) 0.6 K/uL (0.1-1.30); MONOCYTES % (AUTO) 5.8 % (2.0-12.0); NEUTROPHILS # (AUTO) 7.4 K/uL (1.8-8.9); NEUTROPHILS % (AUTO) 78.3 % (43.0-81.0); PLATELET COUNT (AUTO) 225 K/uL (150-450); RED BLOOD CELL COUNT(AUTO) 5.01 MIL/uL (4.5-6.0); WHITE BLOOD COUNT (AUTO) 9.5 K/uL (4.3-11.0)
[2023-01-04 09:43] LABS: ALBUMIN 2.3 g/dL (3.4-5.0); BILIRUBIN,TOTAL 0.3 mg/dL (0.2-1.0); CALCIUM, SERUM 8.1 mg/dL (8.5-10.1); POTASSIUM 4.1 mmol/L (3.5-5.1); TOTAL PROTEIN, SERUM 6.2 g/dL (6.4-8.2)
[2023-01-04] MEDS: HYDROCORTISONE 1% CREAM 28.35 GM TUBE TP SCH ×3 (10:30→17:00)
[2023-01-04] MEDS: TAMSULOSIN 0.4 MG CAP.SR.24H PO SCH (10:33)
[2023-01-04] MEDS: LOSARTAN POTASSIUM 50 MG TABLET PO SCH (10:33)
[2023-01-04] MEDS: HYDROCHLOROTHIAZIDE 25 MG TABLET PO SCH (10:34)
[2023-01-04] MEDS: METOPROLOL TARTRATE 25 MG TABLET PO SCH ×3 (10:35→17:53)
[2023-01-04] MEDS: AMLODIPINE BESYLATE 10 MG TABLET PO SCH (10:36)
[2023-01-04] MEDS: NYSTATIN (PYXIS) 500,000 UNIT/5 ML ORAL.SUSP PO SCH ×4 (10:36→20:45)
[2023-01-04] MEDS: LINEZOLID 600 MG TABLET PO SCH ×2 (10:37→17:52)
[2023-01-04] MEDS: FAMOTIDINE (20 MG) 20 MG TABLET PO SCH ×2 (10:37→20:54)
[2023-01-04] MEDS: KETOROLAC TROMETHAMINE INJ 30 MG/ML VIAL IV PRN (13:53)
[2023-01-04] MEDS: INSULIN REGULAR, HUMAN 100 UNIT/ML 3 ML VIAL SQ PRN ×3 (15:14→18:27)
[2023-01-04 16:00] VITALS: BP 120/81
[2023-01-05 08:00] VITALS: BP 126/90
[2023-01-05] MEDS: INSULIN REGULAR, HUMAN 100 UNIT/ML 3 ML VIAL SQ PRN ×4 (08:00→22:25)
[2023-01-05] MEDS: BLOOD SUGAR DIAGNOSTIC 1 EACH STRIP IN SCH ×4 (08:00→22:25)
[2023-01-05] MEDS: NYSTATIN (PYXIS) 500,000 UNIT/5 ML ORAL.SUSP PO SCH ×4 (08:36→21:26)
[2023-01-05] MEDS: LOSARTAN POTASSIUM 50 MG TABLET PO SCH (08:37)
[2023-01-05] MEDS: TAMSULOSIN 0.4 MG CAP.SR.24H PO SCH (08:38)
[2023-01-05] MEDS: AMLODIPINE BESYLATE 10 MG TABLET PO SCH (08:38)
[2023-01-05] MEDS: LINEZOLID 600 MG TABLET PO SCH ×2 (08:38→16:45)
[2023-01-05] MEDS: HYDROCHLOROTHIAZIDE 25 MG TABLET PO SCH ×2 (08:38→09:00)
[2023-01-05] MEDS: METOPROLOL TARTRATE 25 MG TABLET PO SCH ×2 (08:38→16:45)
[2023-01-05] MEDS: FAMOTIDINE (20 MG) 20 MG TABLET PO SCH ×2 (08:40→21:00)
[2023-01-05] MEDS: HYDROCORTISONE 1% CREAM 28.35 GM TUBE TP SCH ×2 (08:52→16:46)
[2023-01-05] MEDS ORDERED: HYDR28.32 TP (10:44)
[2023-01-05] MEDS: KETOROLAC TROMETHAMINE INJ 30 MG/ML VIAL IV PRN ×2 (11:36→21:40)
[2023-01-05] MEDS: GABAPENTIN 300 MG CAPSULE PO SCH (12:36)
[2023-01-05 16:00] VITALS: BP 138/70
[2023-01-05] MEDS ORDERED: LINE600T12 PO (17:13)
[2023-01-05] MEDS ORDERED: KETO15CR2 TP (17:13)
[2023-01-05] MEDS: KETOCONAZOLE 2% CREAM 15 GM TUBE TP SCH (17:30)
[2023-01-05 20:00] VITALS: BP 143/94
[2023-01-06] MEDS: BLOOD SUGAR DIAGNOSTIC 1 EACH STRIP IN SCH ×2 (08:27→12:00)
[2023-01-06] MEDS: KETOCONAZOLE 2% CREAM 15 GM TUBE TP SCH (08:28)
[2023-01-06] MEDS: NYSTATIN (PYXIS) 500,000 UNIT/5 ML ORAL.SUSP PO SCH ×2 (08:31→12:07)
[2023-01-06] MEDS: LINEZOLID 600 MG TABLET PO SCH (08:31)
[2023-01-06] MEDS: FAMOTIDINE (20 MG) 20 MG TABLET PO SCH (08:32)
[2023-01-06] MEDS: GABAPENTIN 300 MG CAPSULE PO SCH (08:33)
[2023-01-06] MEDS: TAMSULOSIN 0.4 MG CAP.SR.24H PO SCH (08:34)
[2023-01-06] MEDS: METOPROLOL TARTRATE 25 MG TABLET PO SCH (08:35)
[2023-01-06] MEDS: LOSARTAN POTASSIUM 50 MG TABLET PO SCH (08:35)
[2023-01-06] MEDS: HYDROCHLOROTHIAZIDE 25 MG TABLET PO SCH (08:36)
[2023-01-06] MEDS: AMLODIPINE BESYLATE 10 MG TABLET PO SCH (08:36)
[2023-01-06 08:42] VITALS: BP 142/77
[2023-01-06] MEDS: HYDROCORTISONE 1% CREAM 28.35 GM TUBE TP SCH (09:00)
== END 2023-01-06 11:26 | disposition home or self-care (01) | DRG 43 ==
LOC: ER 20:04 → MED 23:10
PROVIDERS: ADMIT Nurse Practitioner Family; ATTEND Nurse Practitioner Acute Care
PROC: 05HC33Z Insertion of Infusion Device into Left Basilic Vein, Percutaneous Approach (ICD-10-PCS; principal; 2022-12-25)
DX: G35 Multiple sclerosis (principal); E44.0 Moderate protein-calorie malnutrition; E88.09 Other disorders of plasma-protein metabolism, not elsewhere classified; E87.1 Hypo-osmolality and hyponatremia; I48.91 Unspecified atrial fibrillation; F17.210 Nicotine dependence, cigarettes, uncomplicated; D50.9 Iron deficiency anemia, unspecified; D64.9 Anemia, unspecified; G47.00 Insomnia, unspecified; J01.90 Acute sinusitis, unspecified; I10 Essential (primary) hypertension; K76.9 Liver disease, unspecified; Z20.822 Contact with and (suspected) exposure to COVID-19; Z85.038 Personal history of other malignant neoplasm of large intestine; Z91.199 Patient's noncompliance with other medical treatment and regimen due to unspecified reason; Z86.718 Personal history of other venous thrombosis and embolism; Z86.711 Personal history of pulmonary embolism; Z88.0 Allergy status to penicillin; Z88.5 Allergy status to narcotic agent; Z79.899 Other long term (current) drug therapy; Z79.01 Long term (current) use of anticoagulants; T38.0X5A Adverse effect of glucocorticoids and synthetic analogues, initial encounter; Y92.9 Unspecified place or not applicable; Z53.20 Procedure and treatment not carried out because of patient's decision for unspecified reasons; R79.89 Other specified abnormal findings of blood chemistry; L73.8 Other specified follicular disorders; H53.8 Other visual disturbances
CPT/HCPCS: 36410; 36415; 70450-TC; 70553-TC; 71045-TC; 71250-TC; 72148-TC; 80048-TC; 80053-TC; 80061-TC; 80076-TC; 82728-TC; 82962-TC; 83540-TC; 83735-TC; 84100-TC; 84443-TC; 85025-TC; 85730-TC; 87081-TC; 92526; 92611-TC; 94799-TC; 97116-TC; 97530-TC; A4216; A4223; A9575; C9803; G0378; J1815; J1885; J2020; J2060; J2930; J7030; J7050; J7512

== ENCOUNTER 2024-05-24 02:41 | Emergency (ER) | payer MEDICAID ==
[~2024-05-24] VITALS: Ht 180.3 cm; Wt 97.5 kg
[~2024-05-24 02:41] MED LIST changes: +ALBU8.5H8 IH; -CARV6.252 PO; +DEXA4TAB PO; -ENOX100D5 SQ; +HYDR12.55 PO; +IBUP-1953 PO; +KETO15CR2 TP; +LINE600T12 PO; +METO25TA20 PO; +TAMS-12 PO
[2024-05-24 02:58] VITALS: BP 152/96; TEMP 98; O2SAT 99
== END 2024-05-24 06:11 | disposition home or self-care (01) ==
LOC: ER 02:58
DX: R13.0 Aphagia (principal); I10 Essential (primary) hypertension; Z85.038 Personal history of other malignant neoplasm of large intestine; Z86.79 Personal history of other diseases of the circulatory system; Z86.718 Personal history of other venous thrombosis and embolism; Z88.0 Allergy status to penicillin; Z88.5 Allergy status to narcotic agent; Z79.899 Other long term (current) drug therapy; Z60.2 Problems related to living alone